=== PATIENT | female | born 1965 | race Caucasian/White ===

== ENCOUNTER → 2017-06-17 | Outpatient (CLI) | payer SELFPAY ==
--- NOTE | 2017-06-17 13:24 | RADIOLOGY REPORT PS360 ---
FOOT-RT-3 VIEWS HISTORY: Follow-up fracture FU FX FIFTH METATARSAL ORDERING PHYSICIAN: ABDULAZIZ NUNEZ MD PATIENT AGE: 51 years COMPARISON: None FINDINGS: There are no previous exams available for comparison. There is a transverse sclerotic density at the distal aspect of the fifth metatarsal at the metaphyseal diaphyseal junction consistent with a healing fracture nondisplaced. Otherwise negative. IMPRESSION: Healing nondisplaced fracture distal fifth metatarsal
--- NOTE | 2017-06-17 13:28 | RADIOLOGY REPORT PS360 ---
WRIST-3 VIEWS-RT HISTORY: Follow-up fracture FU FX DISTAL RADIUS ORDERING PHYSICIAN: ABDULAZIZ NUNEZ MD PATIENT AGE: 51 years COMPARISON: 05/22/2017 FINDINGS: The cast has been removed. There are regional images are not available for review. There is a faint oblique lucency through the trapezium as well as a faint transverse lucency at the radial styloid region. Both of these areas could be related to either nondisplaced fractures or a mock line. Otherwise negative. IMPRESSION: 1. No displaced fracture. 2. Possible nondisplaced hairline fractures of the trapezium and or radial styloid region. Please correlate with original studies
== END ==
LOC: RAD 13:01
DX: S92.354A Nondisplaced fracture of fifth metatarsal bone, right foot, initial encounter for closed fracture (principal); S52.501A Unspecified fracture of the lower end of right radius, initial encounter for closed fracture